=== PATIENT | female | born 1985 | race Caucasian/White ===

== ENCOUNTER 2021-03-24 15:42 | Inpatient (IN) | payer SELFPAY ==
[2021-03-24] MEDS ORDERED: Bupivacaine 0.25% 10 ML SDV ONE (16:00)
[2021-03-24] MEDS ORDERED: Oxytocin 10 Units/1 ML SDV IM ONE (16:02)
[2021-03-24] MEDS ORDERED: Nalbuphine 10 MG/1 ML Vial IVPUSH PRN (16:02)
[2021-03-24] MEDS ORDERED: Sodium Chloride 0.9% 10 ML Syringe FLUSH PRN (16:02)
[2021-03-24] MEDS ORDERED: Ondansetron 4 MG/2 ML SDV IVPUSH PRN (16:02)
[2021-03-24] MEDS ORDERED: Oxytocin/Lactated Ringers 10 UNIT/1,000 ML BAG IV SCH (16:15)
--- NOTE | 2021-03-24 16:47 | PCM.LDHP ---
L&D History of Present Illness - General Date of Service: 03/24/21 Admit Problem/Dx: Patient Status Order with Admit Dx/Problem 03/24/21 16:03 Patient Status [ADT] Routine Admission Diagnosis/Problem Admission Diagnosis/Problem Labor established - History of Present Illness Introduction:: 35 year old at 40w2 here with SROM clear fluid at 1 pm. Painful contracti ons. care with myself without significant complications. Desires no intervention. Requests intermittent monitoring even during active labor, refuses saline lock, desires to deliver on the floor in hands and knees. - Related Data Allergies/Adverse Reactions: Allergies Allergy/AdvReac Type Severity Reaction Status Date / Time benzoyl peroxide Allergy Rash Verified 03/08/21 21:28 Past Medical History - Past Health History Medical/Surgical History: Denies Medical/Surgical History H&P Review of Systems - Review of Systems: Review Of Systems: See Below General: Reports: No Symptoms HEENT: Reports: No Symptoms Pulmonary: Reports: No Symptoms Cardiovascular: Reports: No Symptoms Gastrointestinal: Reports: No Symptoms Genitourinary: Reports: No Symptoms Musculoskeletal: Reports: No Symptoms Skin: Reports: No Symptoms Psychiatric: Reports: No Symptoms Neurological: Reports: No Symptoms Hematologic/Lymphatic: Reports: No Symptoms Immunologic: Reports: No Symptoms L&D Exam - Exam Exam: See Below - OB Specific Contraction Intensity: Moderate to Strong Movement: Active Heart Tones: Present Heart Rate (FHR) Variability: Moderate (6-25 bmp) Presentation: Vertex - Lane Score Lane Score Cervix Position: Midposition Lane Score Consistency: Soft Lane Score Effacement: 31-50% Lane Score Dilation: 3-[address] Score Infant's Station: -2 Lane Score Total: 7 - Exam General: Alert, Oriented HEENT: PERRLA, Conjunctiva Clear, EACs Clear, EOMI, Hearing Intact, Mucosa Moist & [place], Nares Patent, Normal Nasal Septum, Posterior Pharynx Clear, TMs Clear Neck: Supple, Trachea Midline Lungs: Clear to Auscultation, Normal Respiratory Effort Cardiovascular: Regular Rate, Regular Rhythm GI/Abdominal Exam: Normal Bowel Sounds, Soft, Non-Tender, No Organomegaly, No Distention, No Abnormal Bruit, No Mass, Pelvis Stable Rectal Exam: Normal Exam, Normal Rectal Tone Genitourinary: Normal external exam, Normal bimanual exam, Normal speculum exam Back Exam: Normal Inspection, Full Range of Motion Extremities: Normal Inspection, Normal Range of Motion, Non-Tender, No Pedal Edema, Normal Capillary Refill Skin: Warm, Dry, Intact Neurological: Cranial Nerves Intact, Reflexes Equal Bilateral Psychiatric: Alert, Normal Affect, Normal Mood Problem List Initiated/Reviewed/Updated: Yes Orders Last 24hrs: Active Orders 24 hr Category Date Time Status Patient Status [ADT] Routine ADT 03/24/21 16:03 Active Activity as Tolerated [RC] PFP Care 03/24/21 16:02 Active Communication Order [RC] ASDIRECTED Care 03/24/21 16:02 Active Heart Tones [RC] ASDIRECTED Care 03/24/21 16:03 Active Non Stress Test [RC] PER UNIT ROUTINE Care 03/24/21 16:02 Active Notify Provider [RC] PFP Care 03/24/21 16:02 Active Notify Provider [RC] PRN Care 03/24/21 16:02 Active Peripheral IV Care [RC] . DIRECTED Care 03/24/21 16:03 Active Vital Signs [RC] PER UNIT ROUTINE Care 03/24/21 16:02 Active Regular Diet [DIET] Diet 03/24/21 Dinner Active CBC W/O DIFF,HEMOGRAM [HEME] Stat Lab 03/24/21 16:02 Ordered CORONAVIRUS COVID-19 MELONY [MOLEC] Stat Lab 03/24/21 16:05 Ordered RAPID PLASMA REAGIN,RPR [CHEM] Routine Lab 03/24/21 16:02 Ordered Lactated Ringers [Ringers, Lactated] 1,000 ml Med 03/24/21 16:15 Active IV ASDIRECTED Nalbuphine [Nubain] Med 03/24/21 16:02 Active 10 mg IVPUSH Q2H PRN Ondansetron [Zofran] Med 03/24/21 16:02 Active 4 mg IVPUSH Q4H PRN Oxytocin/Lactated Ringers [Pitocin in LR 10 Units/1,000 Med 03/24/21 16:15 Active ML] 10 unit in 1,000 ml IV .CONTINUOUS Sodium Chloride 0.9% [Saline Flush] Med 03/24/21 16:02 Active 10 ml FLUSH ASDIRECTED PRN Electronic Heart Tones Ext w TOCO [WOMSER] Oth 03/24/21 16:02 Ordered Routine Electronic Heart Tones Internal [WOMSER] Per Unit Oth 03/24/21 16:02 Ordered Routine Peripheral IV Insertion Adult [OM.PC] Routine Oth 03/24/21 16:02 Ordered Resuscitation Status Routine Resus Stat 03/24/21 16:02 Ordered Medication Orders Oxytocin/Lactated Ringer's (Pitocin In Lr 10 Units/1,000 Ml) 10 unit in 1,000 mls @ 500 mls/hr IV .CONTINUOUS LIDIA Lactated Ringer's (Ringers, Lactated) 1,000 mls @ 100 mls/hr IV ASDIRECTED LIDIA Nalbuphine HCl (Nalbuphine 10 Mg/1 Ml Vial) 10 mg IVPUSH Q2H PRN PRN Reason: Pain Ondansetron HCl (Ondansetron 4 Mg/2 Ml Sdv) 4 mg IVPUSH Q4H PRN PRN Reason: Nausea/Vomiting Sodium Chloride (Sodium Chloride 0.9% 10 Ml Syringe) 10 ml FLUSH ASDIRECTED PRN PRN Reason: Keep Vein Open Assessment/Plan Comment:: 35 year old at 40w2. Here in labor. - Understands risks of refusal of saline lock including post hemorrhage without access. - Refuses CBC, RPR and type and hold despite explanation that would like to understand baseline hgb/hct - Discussed intermittent monitoring - Discussed if has timeframe of non-reactive monitoring would need longer monitoring
[2021-03-24] MEDS: Lactated Ringers 1,000 ML IV SCH ×2 (19:17→20:13)
[2021-03-24] MEDS ORDERED: diphenhydrAMINE 50 MG/ML SDV IVPUSH PRN (19:29)
[2021-03-24] MEDS ORDERED: ePHEDrine 50 MG/ML SDV IVPUSH PRN (19:29)
[2021-03-24] MEDS ORDERED: Bupivacaine/fentaNYL/NS 100 ML Bag EPIDUR PRN (19:29)
[2021-03-24] MEDS ORDERED: fentaNYL 100 MCG/2 ML SDV EPIDUR PRN (19:29)
--- NOTE | 2021-03-24 20:01 | PCM.PREANE ---
Preanesthetic Assessment - Procedure Proposed Procedure: epidural - Anesthesia/Transfusion/Family Hx Anesthesia History: Prior Anesthesia Without Reaction Family History of Anesthesia Reaction: No Transfusion History: No Prior Transfusion(s) - Review of Systems General: Fatigue, Malaise Pulmonary: No Symptoms Cardiovascular: No Symptoms Gastrointestinal: Abdominal Pain (labor) Neurological: No Symptoms, Numbness (hands) Other: Reports: None - Physical Assessment Vital Signs: Last Vital Signs Temp 36.7 C 03/24/21 15:58 Pulse 97 03/24/21 15:58 Resp 16 03/24/21 15:58 BP 113/79 03/24/21 15:58 Pulse Ox 97 03/24/21 15:58 Height: 1.7 m Weight: 73.028 kg ASA Class: 2 Mental Status: Alert & Oriented x3 Airway Class: Mallampati = 1 Dentition: Reports: Normal Dentition Thyro-Mental Finger Breadths: 3 Mouth Opening Finger Breadths: 3 ROM/Head Extension: Full Lungs: Clear to Auscultation, Normal Respiratory Effort Cardiovascular: Regular Rate, Regular Rhythm - Lab Values: Laboratory Last Values WBC 10.62 K/mm3 (3.98-10.04) H 03/24/21 17:30 RBC 4.15 M/mm3 (3.98-5.22) 03/24/21 17:30 Hgb 13.2 gm/dl (11.2-15.7) 03/24/21 17:30 Hct 39.2 % (34.1-44.9) 03/24/21 17:30 MCV 94.5 fl (79.4-94.8) 03/24/21 17:30 MCH 31.8 pg (25.6-32.2) 03/24/21 17:30 MCHC 33.7 g/dl (32.2-35.5) 03/24/21 17:30 RDW Std Deviation 44.0 fL (36.4-46.3) 03/24/21 17:30 Plt Count 206 K/mm3 (182-369) 03/24/21 17:30 MPV 9.6 fl (9.4-12.3) 03/24/21 17:30 RPR Non-reactive (NONREACTIVE) 03/24/21 17:30 SARS-CoV-2 RNA (MELONY) Negative (NEGATIVE) 03/24/21 15:56 - Allergies Allergies/Adverse Reactions: Allergies Allergy/AdvReac Type Severity Reaction Status Date / Time benzoyl peroxide Allergy Facial Verified 03/24/21 18:32 Swelling - Anesthesia Plan Pre-Op Medication Ordered: None - Acknowledgements Anesthesia Type Planned: Epidural Pt an Appropriate Candidate for the Planned Anesthesia: Yes Alternatives and Risks of Anesthesia Discussed w Pt/Guardian: Yes Pt/Guardian Understands and Agrees with Anesthesia Plan: Yes PreAnesthesia Questionnaire - Past Health History Medical/Surgical History: Denies Medical/Surgical History Gastrointestinal History: Reports: [employer] History: Reports: Psychiatric History: Reports: Anxiety, Depression - Infectious Disease History Infectious Disease History: Reports: Human Papilloma Virus (HPV), Other (See Below) Other Infectious Disease History: Covid in June 2020 - Past Surgical History HEENT Surgical History: Reports: Oral Surgery - SUBSTANCE USE Tobacco Use Status *Q: Never Tobacco User Second Hand Smoke Exposure: No Recreational Drug Use History: No - HOME MEDS Home Medications: Home Meds Vits #93/Iron Fum/FA [ Formula Tablet] 1 each PO DAILY 03/24/21 [History] - CURRENT (IN HOUSE) MEDS Current Meds: Current Medications Diphenhydramine HCl (Diphenhydramine 50 Mg/Ml Sdv) 25 mg IVPUSH Q6H PRN PRN Reason: pruritis Ephedrine Sulfate (Ephedrine 50 Mg/Ml Sdv) 5 mg IVPUSH ASDIRECTED PRN PRN Reason: Hypotension Fentanyl (Fentanyl 100 Mcg/2 Ml Sdv) 100 mcg EPIDUR Q3H PRN PRN Reason: Pain Last Admin: 03/24/21 19:39 Dose: 100 mcg Documented by: Fentanyl/Bupivacaine HCl (Bupivacaine/Fentanyl/Ns 100 Ml Bag) 100 ml EPIDUR ASDIRECTED PRN PRN Reason: Pain Last Admin: 03/24/21 19:55 Dose: 100 ml Documented by: Oxytocin/Lactated Ringer's (Pitocin In Lr 10 Units/1,000 Ml) 10 unit in 1,000 mls @ 500 mls/hr IV .CONTINUOUS LIDIA Lactated Ringer's (Ringers, Lactated) 1,000 mls @ 100 mls/hr IV ASDIRECTED LIDIA Last Admin: 03/24/21 19:17 Dose: 100 mls/hr Documented by: Nalbuphine HCl (Nalbuphine 10 Mg/1 Ml Vial) 10 mg IVPUSH Q2H PRN PRN Reason: Pain Ondansetron HCl (Ondansetron 4 Mg/2 Ml Sdv) 4 mg IVPUSH Q4H PRN PRN Reason: Nausea/Vomiting Sodium Chloride (Sodium Chloride 0.9% 10 Ml Syringe) 10 ml FLUSH ASDIRECTED PRN PRN Reason: Keep Vein Open Discontinued Medications Oxytocin (Oxytocin 10 Units/1 Ml Sdv) 10 unit IM ONETIME ONE Stop: 03/24/21 16:03
--- NOTE | 2021-03-24 23:39 | PCM.SN.2 ---
- Free Text/Narrative Note: Stage I - Patient presented in active labor with SROM clear fluid. Progressed to complete with overall reassuring heart tones. Epidural for anesthesia. Stage II - Head delivered slowly in intact perineum, body and shoulders atraumatically. To maternal abdomen. Positive cry. Cord clamped and cut at 3 minutes of life. Cord blood collected. Pitocin given. Stage III - of intact placenta. No lacerations. EBL 175.
[2021-03-25] MEDS ORDERED: Benzocaine/Menthol 20%-0.5% Spray 56 GM Canister TOP PRN (00:10)
[2021-03-25] MEDS ORDERED: Witch Hazel Medicated Pads 40/Jar TOP PRN (00:10)
[2021-03-25] MEDS: Ibuprofen 600 MG Tab PO PRN ×2 (01:55→13:56)
--- NOTE | 2021-03-25 07:53 | PCM.DCSUM1 ---
Discharge Summary - Hospital Course Brief History: Admitted in active labor. Uncomplicated labor and course. Diagnosis: Stroke: No - Discharge Data Discharge Date: 03/25/21 Discharge Disposition: Home, Self-Care 01 Condition: Good - Referral to Home Health Primary Care Physician: Myriam eMredith MD - Patient Instructions Diet: Usual Diet as Tolerated Activity: No Strenuous Activities Driving: May Drive Today Showering/Bathing: May Shower Notify Provider of: Fever, Increased Pain, Swelling and Redness, Drainage, Nausea and/or Vomiting - Discharge Plan *PRESCRIPTION DRUG MONITORING PROGRAM REVIEWED*: No *COPY OF PRESCRIPTION DRUG MONITORING REPORT IN PATIENT KENNETH: No Home Medications: Home Meds Vits #93/Iron Fum/FA [ Formula Tablet] 1 each PO DAILY 03/24/21 [History] Referrals: Myriam Meredith MD [Primary Care Provider] - (2 weeks) - Discharge Summary/Plan Comment DC Time >30 min.: No - General Info Date of Service: 03/25/21 Functional Status: Reports: Pain Controlled - Review of Systems General: Reports: No Symptoms HEENT: Reports: No Symptoms Pulmonary: Reports: No Symptoms Cardiovascular: Reports: No Symptoms Gastrointestinal: Reports: No Symptoms Genitourinary: Reports: No Symptoms Musculoskeletal: Reports: No Symptoms Skin: Reports: No Symptoms Neurological: Reports: No Symptoms Psychiatric: Reports: No Symptoms - Patient Data Vitals - Most Recent: Last Vital Signs Temp 36.9 C 03/25/21 03:48 Pulse 85 03/25/21 03:48 Resp 15 03/25/21 03:48 BP 129/61 03/25/21 03:48 Pulse Ox 95 03/25/21 03:48 Weight - Most Recent: 73.028 kg I&O - Last 24 hours: Intake & Output 03/24/21 03/25/21 03/25/21 22:59 06:59 14:59 Output Total 25( Balance @ -242 Lab Results - Last 24 hrs: Laboratory Results - last 24 hr 03/24/21 03/24/21 03/24/21 Range/Units 15:56 17:30 17:30 WBC 10.62 H (3.98-10.04) K/mm3 RBC 4.15 (3.98-5.22) M/mm3 Hgb 13.2 (11.2-15.7) gm/dl Hct 39.2 (34.1-44.9) % MCV 94.5 (79.4-94.8) fl MCH 31.8 (25.6-32.2) pg MCHC 33.7 (32.2-35.5) g/dl RDW Std Deviation 44.0 (36.4-46.3) fL Plt Count 206 (182-369) K/mm3 MPV 9.6 (9.4-12.3) fl RPR Non-reactive (NONREACTIVE) SARS-CoV-2 RNA (MELONY) Negative (NEGATIVE) Med Orders - Current: Current Medications Benzocaine/Menthol (Benzocaine/Menthol 20%-0.5% [place] 56 Gm Canister) 0 gm TOP ASDIRECTED PRN PRN Reason: Perineal Comfort Measure Last Admin: 03/25/21 00:35 Dose: 1 applic Documented by: Ibuprofen (Ibuprofen 600 Mg Tab) 600 mg PO Q6H PRN PRN Reason: Mild pain or fever Last Admin: 03/25/21 01:55 Dose: 600 mg Documented by: Gilles Corley (Gilles Corley Medicated Pads 40/Jar) 1 pad TOP ASDIRECTED PRN PRN Reason: Perineal Comfort Measure Discontinued Medications Diphenhydramine HCl (Diphenhydramine 50 Mg/Ml Sdv) 25 mg IVPUSH Q6H PRN PRN Reason: pruritis Ephedrine Sulfate (Ephedrine 50 Mg/Ml Sdv) 5 mg IVPUSH ASDIRECTED PRN PRN Reason: Hypotension Fentanyl (Fentanyl 100 Mcg/2 Ml Sdv) 100 mcg EPIDUR Q3H PRN PRN Reason: Pain Last Admin: 03/24/21 19:39 Dose: 100 mcg Documented by: Fentanyl/Bupivacaine HCl (Bupivacaine/Fentanyl/Ns 100 Ml Bag) 100 ml EPIDUR ASDIRECTED PRN PRN Reason: Pain Last Admin: 03/24/21 19:55 Dose: 100 ml Documented by: Oxytocin/Lactated Ringer's (Pitocin In Lr 10 Units/1,000 Ml) 10 unit in 1,000 mls @ 500 mls/hr IV .CONTINUOUS LIDIA Lactated Ringer's (Ringers, Lactated) 1,000 mls @ 100 mls/hr IV ASDIRECTED LIDIA Last Admin: 03/24/21 20:13 Dose: 100 mls/hr Documented by: Nalbuphine HCl (Nalbuphine 10 Mg/1 Ml Vial) 10 mg IVPUSH Q2H PRN PRN Reason: Pain Ondansetron HCl (Ondansetron 4 Mg/2 Ml Sdv) 4 mg IVPUSH Q4H PRN PRN Reason: Nausea/Vomiting Oxytocin (Oxytocin 10 Units/1 Ml Sdv) 10 unit IM ONETIME ONE Stop: 03/24/21 16:03 Sodium Chloride (Sodium Chloride 0.9% 10 Ml Syringe) 10 ml FLUSH ASDIRECTED PRN PRN Reason: Keep Vein Open - Exam General: Reports: Alert, Oriented HEENT: Reports: Pupils Equal, Pupils Reactive, EOMI, Mucous Membr. Moist/[place] Neck: Reports: Supple Lungs: Reports: Clear to Auscultation, Normal Respiratory Effort Cardiovascular: Reports: Regular Rate, Regular Rhythm GI/Abdominal Exam: Normal Bowel Sounds, Soft, Non-Tender, No Organomegaly Rectal (Female) Exam: Normal Exam, Normal Rectal Tone Back Exam: Reports: Normal Inspection, Full Range of Motion Extremities: Normal Inspection, Normal Range of Motion, Non-Tender, No Pedal Edema, Normal Capillary Refill Skin: Reports: Warm, Dry, Intact Wound/Incisions: Reports: Healing Well Neurological: Reports: No New Focal Deficit Psy/Mental Status: Reports: Alert, Normal Affect, Normal Mood
--- NOTE | 2021-03-25 08:23 | PCM48HPAN ---
Post Anesthesia Note - EVALUATION WITHIN 48HRS OF ANESTHETIC Vital Signs in Normal Range: Yes Patient Participated in Evaluation: Yes Respiratory Function Stable: Yes Airway Patent: Yes Cardiovascular Function Stable: Yes Hydration Status Stable: Yes Pain Control Satisfactory: Yes Nausea and Vomiting Control Satisfactory: Yes Mental Status Recovered: Yes Vital Signs: Last Vital Signs Temp 36.9 C 03/25/21 03:48 Pulse 85 03/25/21 03:48 Resp 15 03/25/21 03:48 BP 129/61 03/25/21 03:48 Pulse Ox 95 03/25/21 03:48 - COMMENTS/OBSERVATIONS Free Text/Narrative:: no anesthesia complications noted
[2021-03-26] MEDS ORDERED: Sertraline 50 MG Tab PO SCH (09:00)
== END 2021-03-26 17:40 | disposition home or self-care (01) | DRG 807 ==
LOC: JD.OBCHECK 15:42 → JD.OB 15:46 → JD.OBCHECK 16:03 → OBSVTOIN 22:46 → JD.OB 22:47
PROVIDERS: ADMIT Obstetrics & Gynecology; ATTEND Obstetrics & Gynecology
PROC: 10E0XZZ Delivery of Products of Conception, External Approach (ICD-10-PCS; principal; 2021-03-24)
PROC: 3E0R3BZ Introduction of Anesthetic Agent into Spinal Canal, Percutaneous Approach (ICD-10-PCS; 2021-03-24)
DX: O48.0 Post-term pregnancy (principal); Z37.0 Single live birth; Z3A.40 40 weeks gestation of pregnancy; Z88.8 Allergy status to other drugs, medicaments and biological substances; Z20.822 Contact with and (suspected) exposure to COVID-19
CPT/HCPCS: 01967; 36415; 51702; 59025; 59409; 85027; 86592; A9270-GY; J3010; J3490; J7120; U0002